=== PATIENT | female | born 2000 | race Two or more races ===

== ENCOUNTER 2022-07-07 18:10 | Emergency (ER) | payer OTHER ==
[~2022-07-07] VITALS: Ht 167.6 cm; Wt 82.1 kg
== END 2022-07-07 20:22 | disposition home or self-care (01) ==
LOC: ER 18:10 → EMR PED 18:13 → ER 20:22
DX: S93.401A Sprain of unspecified ligament of right ankle, initial encounter (principal); X50.1XXA Overexertion from prolonged static or awkward postures, initial encounter